=== PATIENT | female | born 1960 | race Caucasian/White ===

== ENCOUNTER 2016-08-21 10:51 | Emergency (ER) | payer BC, OTHER ==
[~2016-08-21] VITALS: Ht 167.6 cm; Wt 80.0 kg
[2016-08-21] MEDS ORDERED: SODIUM CHLORIDE FLUSH 10ML SYR IVF ONE (11:30)
[2016-08-21] MEDS ORDERED: ACYC-114 PO (11:40)
[2016-08-21] MEDS ORDERED: ASPI-621 PO (11:40)
[2016-08-21] MEDS ORDERED: EZET1TAB5 PO (11:40)
[2016-08-21 11:49] LABS: BLOOD UREA NITROGEN 25 mg/dL (7-18)
[2016-08-21 11:52] LABS: ASPARTATE AMINO TRANSFERASE 16 U/L (15-37)
[2016-08-21 11:53] LABS: IS PT STATUS REG ER OR PRE ER? YES
[2016-08-21] MEDS ORDERED: MAALOX/HYOSCYAMINE/LIDOCAINE 45 ML BOTTLE PO ONE (12:30)
[2016-08-21] MEDS ORDERED: MAALOX/HYOSCYAMINE/LIDOCAINE 45 ML BOTTLE ONE (12:31)
[2016-08-21 13:39] VITALS: BP 111/80
== END 2016-08-21 13:44 | disposition home or self-care (01) ==
LOC: ED 12:22
DX: R07.89 Other chest pain (principal); E78.5 Hyperlipidemia, unspecified
CPT/HCPCS: 36415; 71010; 74220; 80053; 83690; 83880; 84484; 85025; 93005